=== PATIENT | male | born 2000 | race Caucasian/White ===

== ENCOUNTER 2021-06-19 14:00 | Emergency (ER) | payer OTHER ==
[2021-06-19 14:15] VITALS: BP 102/56; PULSE 72; TEMP 97.8; BMI 21.0
[2021-06-19] MEDS ORDERED: ACETAMINOPHEN 1000 MG/100 ML BAG IVPB ONE (14:28)
[2021-06-19] MEDS ORDERED: SODIUM CHLORIDE 1,000 ML IV STA (14:28)
[2021-06-19] MEDS ORDERED: ACETAMINOPHEN INJECTION 100 ML IVPB ONE (14:48)
[2021-06-19 15:08] LABS: HEMATOCRIT 44.4 % (35.4-49); HEMOGLOBIN 15.4 G/dL (11.7-16.9); MCH 29.5 pg (25.7-33.7); MCHC 34.6 g/dl (32.0-35.9); MEAN CELL VOLUME 85.2 fl (80-96); MEAN PLT VOLUME 7.2 fl (7.5-11.1); PLATELET COUNT 230.3 10^3/uL (134-434); RBC 5.21 10^6/uL (4.00-5.60); RDW 14.5 % (11.9-15.9); WHITE BLOOD COUNT 5.5 10^3/uL (4.0-10.8)
[2021-06-19 15:11] LABS: INR 1.19 (0.83-1.09); PROTHROMBIN TIME (PATIENT) 13.7 SEC (9.7-13.0)
[2021-06-19 15:12] LABS: ALBUMIN 4.2 g/dl (3.4-5.0); BILIRUBIN,TOTAL 0.9 mg/dl (0.2-1); CALCIUM 9.3 mg/dl (8.5-10); CREATININE 0.9 mg/dl (0.55-1.3); TOT PROT 7.5 g/dl (6.4-8.2)
[2021-06-19 15:14] LABS: ACTIVATED PTT 31.1 SECONDS (25.2-36.5)
== END 2021-06-19 17:15 | disposition home or self-care (01) ==
LOC: FER 14:00
PROC: 3E0333Z Introduction of Anti-inflammatory into Peripheral Vein, Percutaneous Approach (ICD-10-PCS; principal; 2021-06-19)
PROC: 3E0337Z Introduction of Electrolytic and Water Balance Substance into Peripheral Vein, Percutaneous Approach (ICD-10-PCS; 2021-06-19)
DX: R10.9 Unspecified abdominal pain (principal)
CPT/HCPCS: 36415; 74177-TC; 80053; 83690; 85027; 85610; 85730; 86850; 86900; 86901; 99285-25; Q9967